=== PATIENT | female | born 1945 | race Two or more races ===

== ENCOUNTER 2022-03-24 11:41 | Inpatient (IN) | payer OTHER ==
[~2022-03-24] VITALS: Ht 152.4 cm; Wt 59.0 kg
[2022-03-24] MEDS ORDERED: LEXAPRO20 MG PO (12:01)
[2022-03-24] MEDS ORDERED: LOSARTAN-HCTZ1 EAC1 PO (12:01)
[2022-03-24] MEDS ORDERED: ATIVAN0.5 M1 PO (12:01)
[2022-03-24] MEDS ORDERED: ARICEPT5 MG PO (12:02)
[2022-03-24] MEDS ORDERED: SIMVASTATIN5 MG PO (12:02)
[2022-03-24] MEDS ORDERED: NAMENDA10 MG PO (12:02)
--- NOTE | 2022-03-24 12:02 | NUR ---
SE RECIBE PTE ALERTA ACOMPANADA POR FUENTES HIJA LA CUAL REFIERE QUE FUENTES SANDRA,JOE COLON LA REFIERE POR EL SODIO BAJO,NAUSEAS,ES PTE DE ALZHEIMER ,REFIERE FAMILIAR QUE FUENTES CONDICION MENTAL BERMAN DESMEJORADO EN [place] .QUE SE CONFUNDE EN TIEMPO Y ESPACIO.
[2022-03-24] MEDS ORDERED: GLIPIZIDE XL2.5 MG PO (12:10)
--- NOTE | 2022-03-24 14:32 | NUR ---
PACIENTE EVALUADA POR EL A QUIEN ORDENA TRATAMIENTO MEDICO.SE REALIZAN MUESTRAS BAJO MEDIDAS ASEPTICAS Y SE ADMINISTRAN MEDICAMENTOS FRANCES ORDEN.SE HACE ENTREGA DE ENVASE U/A. SE ESPERA POR CT PENDIENTE.
== END 2022-03-28 22:19 | disposition home or self-care (01) | DRG 641 ==
LOC: ER 11:41 → MEDJ 21:09
PROVIDERS: ADMIT Internal Medicine; ATTEND Internal Medicine
PROC: BW28ZZZ Computerized Tomography (CT Scan) of Head (ICD-10-PCS; principal; 2022-03-24)
DX: E87.1 Hypo-osmolality and hyponatremia (principal); E87.6 Hypokalemia; R41.82 Altered mental status, unspecified; G30.9 Alzheimer's disease, unspecified; F02.80 Dementia in other diseases classified elsewhere, unspecified severity, without behavioral disturbance, psychotic disturbance, mood disturbance, and anxiety; Z20.822 Contact with and (suspected) exposure to COVID-19; E11.9 Type 2 diabetes mellitus without complications; Z79.4 Long term (current) use of insulin; I10 Essential (primary) hypertension

== ENCOUNTER 2022-04-03 19:12 | Emergency (ER) | payer OTHER ==
[~2022-04-03] VITALS: Ht 149.9 cm; Wt 56.7 kg
[~2022-04-03 19:12] MED LIST: ARICEPT5 MG PO; ATIVAN0.5 M1 PO; GLIPIZIDE XL2.5 MG PO; LEXAPRO20 MG PO; LOSARTAN-HCTZ1 EAC1 PO; NAMENDA10 MG PO; SIMVASTATIN5 MG PO
[2022-04-03] MEDS ORDERED: PENTOXIFYLLINE400 MG PO (20:30)
[2022-04-04] MEDS ORDERED: ITCH RELIEF15 G1 TOP (04:59)
[2022-04-04] MEDS ORDERED: CEFDINIR300 MG PO (04:59)
[2022-04-04] MEDS ORDERED: ATARAX25 MG PO (04:59)
== END 2022-04-04 05:16 | disposition home or self-care (01) ==
LOC: ER 19:12
DX: N39.0 Urinary tract infection, site not specified (principal); R41.82 Altered mental status, unspecified; L50.9 Urticaria, unspecified; M79.89 Other specified soft tissue disorders; E11.9 Type 2 diabetes mellitus without complications; Z79.84 Long term (current) use of oral hypoglycemic drugs; G31.9 Degenerative disease of nervous system, unspecified; I10 Essential (primary) hypertension; E87.1 Hypo-osmolality and hyponatremia; Z88.6 Allergy status to analgesic agent; D72.10 Eosinophilia, unspecified

== ENCOUNTER 2024-01-31 21:49 | Emergency (ER) | payer OTHER ==
[~2024-01-31] VITALS: Ht 149.9 cm; Wt 52.6 kg
[~2024-01-31 21:49] MED LIST changes: +ARICEPT10 MG PO; +ATARAX25 MG PO; +CEFDINIR300 MG PO; +GLIMEPIRIDE1 MG PO; +ITCH RELIEF15 G1 TOP; +LIPITOR20 MG PO; +LOSARTAN POTAS100 MG PO; +PENTOXIFYLLINE400 MG PO; +RISPERDAL1 MG PO; +WELLBUTRIN SR150 MG PO; +XARELTO10 MG PO
[2024-02-01] MEDS ORDERED: 0.9 % SODIUM CHLORIDE 500 ML IV STA (00:51)
[2024-02-01 01:43] LABS: CALCIUM 9.2 mg/dL (8.5-10.1); CREATININE SERUM 0.83 mg/dL (0.55-1.02); GFR 66.66; POTASSIUM 3.86 mEq/L (3.5-5.1)
[2024-02-01 02:51] LABS: URINE EPITHELIAL CELLS 2.3 uL (0.0-38.8); URINE RBC 11.2 uL (0.0-20.8); URINE WBC 565.9 uL (0.0-23.2)
[2024-02-01 03:13] LABS: PH,URINE 7.5; URINE APPEARANCE SL CLOUDY; URINE BILIRRUBIN NEGATIVE (NEGATIVE); URINE BLOOD TRACE; URINE COLOR YELLOW; URINE GLUCOSE NEGATIVE (NEGATIVE); URINE NITRATE POSITIVE; URINE PROTEIN NEGATIVE (NEGATIVE); URINE UROBILINOGEN 0.2 E.U./dl
[2024-02-01 03:14] LABS: URINE BACTERIA > 9821.5 uL (0.0-1933); URINE LEUKOCYTE MANY
== END 2024-02-01 03:48 | disposition home or self-care (01) ==
LOC: ER 21:50
DX: R53.81 Other malaise (principal); R53.1 Weakness; Z88.6 Allergy status to analgesic agent
CPT/HCPCS: 36415; 96365; 96366; 99282; J7042

== ENCOUNTER 2024-02-05 02:15 | Emergency (ER) | payer OTHER ==
[~2024-02-05] VITALS: Ht 149.9 cm; Wt 68.0 kg
[2024-02-05] MEDS ORDERED: ACETAMINOPHEN 500 MG GEL..CAP PO STA (03:04)
== END 2024-02-05 03:43 | disposition home or self-care (01) ==
LOC: ER 02:16
DX: S20.229A Contusion of unspecified back wall of thorax, initial encounter (principal); W18.2XXA Fall in (into) shower or empty bathtub, initial encounter; Y93.89 Activity, other specified; Y92.89 Other specified places as the place of occurrence of the external cause; Y99.8 Other external cause status; Z88.6 Allergy status to analgesic agent